=== PATIENT | male | born 1990 | race Caucasian/White ===

== ENCOUNTER 2016-10-10 06:49 | Emergency (ER) | payer MEDICAID ==
[~2016-10-10] VITALS: Ht 162.6 cm; Wt 49.7 kg
[2016-10-10] MEDS ORDERED: SODIUM CHLORIDE 0.9% 1,000 ML IV ONE (07:11)
[2016-10-10] MEDS ORDERED: FAMOTIDINE 20 MG/2 ML ONE (07:12)
[2016-10-10] MEDS ORDERED: ONDANSETRON 2MG/ML, 2ML ONE (07:12)
[2016-10-10] MEDS ORDERED: HYDROmorphone 1 MG/ML, 1ML ONE (07:12)
[2016-10-10] MEDS ORDERED: ONDANSETRON 2MG/ML, 2ML IVPush ONE (07:30)
[2016-10-10] MEDS ORDERED: HYDROmorphone 1 MG/ML, 1ML IVPush PRN (07:30)
[2016-10-10] MEDS ORDERED: FAMOTIDINE 20 MG/2 ML IVP ONE (07:30)
[2016-10-10] MEDS ORDERED: SODIUM CHLORIDE 0.9% 1,000ML IVBOLUS ONE (07:30)
[2016-10-10 07:34] LABS: HEMOGLOBIN 13.3 g/dL (13.7-18.0)
[2016-10-10 07:49] LABS: ASPARTATE AMINO TRANSFERASE 13 U/L (15-37); BLOOD UREA NITROGEN 13 mg/dL (7-18)
[2016-10-10] MEDS ORDERED: OMNIPAQUE 350 MG/ML, 100ML BOTTLE ONE (08:37)
[2016-10-10] MEDS ORDERED: PROMETHAZINE 25 MG/ML, 1ML ONE (09:02)
[2016-10-10] MEDS ORDERED: KETOROLAC 30 MG/1 ML ONE (09:02)
[2016-10-10 09:15] VITALS: BP 128/94
[2016-10-10] MEDS ORDERED: KETOROLAC 30 MG/1 ML IVPush ONE (09:30)
[2016-10-10] MEDS ORDERED: PROMETHAZINE 25 MG/ML, 1ML IM ONE (09:30)
== END 2016-10-10 09:34 | disposition home or self-care (01) ==
LOC: ED 09:25
DX: N20.1 Calculus of ureter (principal)
CPT/HCPCS: 36415; 74177; 80053; 81001; 83690; 85025; 96372; 96374; 96375; 99285; J1170; J1885; J2405; J2550; J7030; Q9967; S0028